=== PATIENT | male | born 1980 | race Caucasian/White ===

== ENCOUNTER 2018-01-18 17:24 | Observation (INO) ==
[~2018-01-18 17:24] MED LIST: Glycopyrrolate Inj 1 MG/5 ML Syringe IV.PUSH ONE; Lidocaine PF 1% Inj 5 ML Syringe INFILTRATN ONE; Neostigmine Inj 5 MG/5 ML Syringe IV.PUSH ONE
[2018-01-18] MEDS ORDERED: Acetaminophen 325 MG Tablet PO ONE (17:32)
--- NOTE | 2018-01-18 17:34 | ED ---
HPI General Chief Complaint: Abdominal Pain Stated Complaint: right side pain Time Seen by Provider: 01/18/18 17:32 Source: patient, family, RN notes reviewed, old records reviewed and interpreter and translator Mode of arrival: ambulatory Limitations: language barrier (tajik speaking) History of Present Illness HPI narrative: 37-year-old male presents with right lower quadrant pain since yesterday. He had one episode of vomiting yesterday. He did not realize he had a fever until he came here. He denies any other concurrent complaints. MD complaint: abdominal pain Onset (ago): day(s) Pain Consistency: constant Location: RLQ Severity: moderate Quality: stabbing Radiation: RLQ Migration to: no migration Relieving factors: nothing Exacerbating factors: movement Associated symptoms: vomiting (one yesterday) and fever Related Data Home Medications Medication Instructions Recorded Confirmed No Known Home Medications 01/18/18 01/18/18 Allergies Allergy/AdvReac Type Severity Reaction Status Date / Time No Known Allergies Allergy Unverified 01/18/18 17:28 Review of Systems ROS: all other systems reviewed are negative [facility] Medical History Medical History Patient denies medical problems (Acute) Surgical History Surgical History No history of previous surgery (Acute) Social History Social History Substance History: No History of Abuse Smoking Status: Never smoker How Often Do You Have a Drink Containing Alcohol: 4 or more times a week Recent Travel in [facility] within the Last 8 Weeks: No Recent Out of Country Travel within the Last 8 Weeks: No Exam Narrative Exam Narrative: GENERAL: 37 y/o male in no apparent distress SKIN: Focused skin assessment warm/dry. HEAD: Atraumatic. Normocephalic. EYES: Pupils equal and round. No scleral icterus. No injection or drainage. ENT: No nasal bleeding or discharge. Mucous membranes pink and moist. NECK: Trachea midline. CARDIOVASCULAR: Regular rate and rhythm. RESPIRATORY: No accessory muscle use. Clear to auscultation. Breath sounds equal bilaterally. GASTROINTESTINAL: Abdomen soft, ttp in rlq, nondistended. MUSCULOSKELETAL: No obvious deformities. No clubbing. No cyanosis. No edema. NEUROLOGICAL: Awake and alert. No obvious cranial nerve deficits. Motor grossly within normal limits. Normal speech. PSYCHIATRIC: Appropriate mood and affect; insight and judgment normal. Course Reevaluation(s) Reevaluation #1: Patient updated and notified of need for admission and surgery for acute appendicitis. Given Zosyn Consultations Consultation #1: Dr. Lagos through OR staff agrees to admission Initial Documented Vital Signs Temperature 101.3 F H 01/18/18 17:28 Pulse Rate 105 H 01/18/18 17:28 Respiratory Rate 19 01/18/18 17:28 Blood Pressure 133/72 01/18/18 17:28 Pulse Oximetry 98 01/18/18 17:28 Last Documented Vital Signs Temperature 101.3 F H 01/18/18 17:28 Pulse Rate 96 H 01/18/18 17:50 Respiratory Rate 20 01/18/18 17:50 Blood Pressure 132/73 01/18/18 17:50 Pulse Oximetry 98 01/18/18 17:50 Medical Decision Making MDM Narrative Medical decision making narrative: Will check blood work, urinalysis, CT scan abdominal pelvis and reevaluate Medical Screen Exam Complete: Yes Emergency Medical Condition: Yes Differential Diagnosis Differential Diagnosis: Appendicitis, stone, UTI Lab Data Lab results reviewed: Yes I reviewed the patient's lab results. Result diagrams: 01/18/18 17:45 01/18/18 17:45 Lab Results 01/18/18 01/18/18 01/18/18 Range/Units 17:45 17:45 17:45 WBC 15.4 H (4.0-11.0) th/mm3 RBC 4.42 L (4.50-5.90) mil/mm3 Hgb 13.4 (13.0-17.0) gm/dL Hct 39.0 (39.0-51.0) % MCV 88.2 (80.0-100.0) fL MCH 30.3 (27.0-34.0) pg MCHC 34.4 (32.0-36.0) % RDW 13.2 (11.6-17.2) % Plt Count 214 (150-450) th/mm3 MPV 8.7 (7.0-11.0) fL Neut % (Auto) 67.1 (16.0-70.0) % Lymph % (Auto) 20.6 (9.0-44.0) % [place] % (Auto) 6.8 (0.0-8.0) % Eos % (Auto) 5.3 H (0.0-4.0) % Baso % (Auto) 0.2 (0.0-2.0) % Neut # (Auto) 10.3 H (1.8-7.7) th/mm3 Lymph # (Auto) 3.2 (1.0-4.8) th/mm3 [place] # (Auto) 1.0 H (0.0-0.9) th/mm3 Eos # (Auto) 0.8 H (0.0-0.4) th/mm3 Baso # (Auto) 0.0 (0.0-0.2) th/mm3 WBC Differential . Differential Comment Auto diff final Sodium 137 (136-145) meq/L Potassium 3.8 (3.5-5.1) meq/L Chloride 99 (98-107) meq/L Carbon Dioxide 28.9 (21.0-32.0) meq/L Anion Gap 9 (5-15) meq/L BUN 20 H (7-18) mg/dL Creatinine 1.18 (0.60-1.30) mg/dL Estimated GFR 69 L (>89) mL/min Random Glucose 89 (74-106) mg/dL Lactic Acid 0.8 (0.4-2.0) mmol/L Calcium 8.8 (8.5-10.1) mg/dL Total Bilirubin 1.1 H (0.2-1.0) mg/dL AST 17 (15-37) U/L ALT 36 (12-78) U/L Alkaline Phosphatase 51 (45-117) U/L Total Protein 8.4 H (6.4-8.2) g/dL Albumin 4.0 (3.4-5.0) g/dL Lipase 106 (73-393) U/L Imaging Data Attestation: I personally reviewed and interpreted this imaging study as follows : Radiologist's impression: Abdomen/Pelvis CT 01/18/18 17:41 CONCLUSION: 1. Acute appendicitis without evidence of rupture. 2. Uncomplicated sigmoid diverticulosis. 3. No evidence of abscess or free fluid. Discharge Plan Discharge Disposition Patient Disposition: 30 Still Patient Discharge Condition Condition: Stable Discharge Details Diagnosis: Acute appendicitis, Sepsis Physicians Team ED Provider: Agueda Escalante Primary Care Provider: UNKNOWN, Attending Provider: Ananda Lagos Status ED Status: Admitted Patient
[2018-01-18] MEDS ORDERED: Sod Chloride 0.9% Inj 1,000 ML IV.SIG SCH (17:45)
--- NOTE | 2018-01-18 18:13 | CT ---
EXAM DATE: 01/18/2018 5:58 PM EDT AGE/SEX: 37 years / Male INDICATIONS: Right sided abdomen pain for two days. CLINICAL DATA: This is the patient's initial encounter. Patient reports that signs and symptoms have been present for 2 days and indicates a pain score of 7/10. MEDICAL/SURGICAL HISTORY: None. None. RADIATION DOSE: 32.28 CTDI (mGy) ; Patient body habitus COMPARISON: No prior exams available for comparison. TECHNIQUE: Multiple contiguous axial images were obtained through the abdomen. Images were obtained using multiple row detector helical technique. Using automated exposure control and adjustment of the mA and/or kV according to patient size, radiation dose was kept as low as reasonably achievable to o btain optimal diagnostic quality images. DICOM format image data is available electronically for rev iew and comparison. FINDINGS: Lower Lungs: The visualized lower lungs are clear. Liver: The liver has a homogeneous density without space-occupying lesion. There is no dilation of th e biliary tree. Calcified granuloma is identified centrally in the right hepatic lobe. Spleen: Homogeneous density without enlargement. Pancreas: Unremarkable without mass or calcification. Kidneys: Normal in size and shape. No evidence of mass or hydronephrosis. Adrenal Glands: Unremarkable. Aorta: The aorta and proximal iliac vessels are grossly unremarkable without aneurysmal dilation. Bowel/Mesentery: There is generalized thickening of the appendix with periappendiceal stranding is no evidence of free air or abnormal periappendiceal fluid collections. A few scattered diverticula are seen throughout the sigmoid colon. The bowel loops are otherwise grossly unremarkable. The cecum and sigmoid colon have a normal configuration. Abdominal Wall: Intact. Retroperitoneum: No evidence of adenopathy in the retrocrural, para-aortic, or deep pelvic regions. Bladder: Contours are smooth. Reproductive Organs: No abnormal masses or calcifications seen. Inguinal: The inguinal region is unremarkable without evidence of adenopathy. Bony Structures: Unremarkable. CONCLUSION: 1. Acute appendicitis without evidence of rupture. 2. Uncomplicated sigmoid diverticulosis. 3. No evidence of abscess or free fluid. Electronically signed by: Candido Miner MD 01/18/2018 6:11 PM EDT
[2018-01-18 18:16] LABS: Baso % (Auto) 0.2 % (0.0-2.0); Eos # (Auto) 0.8 th/mm3 (0.0-0.4); Eos % (Auto) 5.3 % (0.0-4.0); Hemoglobin 13.4 gm/dL (13.0-17.0); Lymph # (Auto) 3.2 th/mm3 (1.0-4.8); Lymph % (Auto) 20.6 % (9.0-44.0); Mean Corpuscular HGB Conc 34.4 % (32.0-36.0); Mean Corpuscular Hemoglobin 30.3 pg (27.0-34.0); Mean Corpuscular Volume 88.2 fL (80.0-100.0); Mean Platelet Volume 8.7 fL (7.0-11.0); Mono % (Auto) 6.8 % (0.0-8.0); Neut # (Auto) 10.3 th/mm3 (1.8-7.7); Neut % (Auto) 67.1 % (16.0-70.0); Platelet Count 214 th/mm3 (150-450); Red Blood Count 4.42 mil/mm3 (4.50-5.90); Red Cell Distribution Width 13.2 % (11.6-17.2); White Blood Count 15.4 th/mm3 (4.0-11.0)
[2018-01-18] MEDS ORDERED: Piperacil/Tazo 3.375 GM Premix 50 ML IV.SIG ONE (18:18)
[2018-01-18 18:45] LABS: Anion Gap 9 meq/L (5-15); Aspartate Aminotransferase 17 U/L (15-37); Blood Urea Nitrogen 20 mg/dL (7-18); Calcium 8.8 mg/dL (8.5-10.1); Carbon Dioxide 28.9 meq/L (21.0-32.0); Chloride 99 meq/L (98-107); Glomerular Filtration Rate 69 mL/min (>89); Glucose,Random 89 mg/dL (74-106); Lipase 106 U/L (73-393); Potassium 3.8 meq/L (3.5-5.1); Sodium 137 meq/L (136-145)
[2018-01-18 18:49] LABS: Alanine Aminotransferase 36 U/L (12-78); Alkaline Phosphatase 51 U/L (45-117); Total Protein 8.4 g/dL (6.4-8.2)
--- NOTE | 2018-01-18 20:45 | P.HPGS ---
History of Present Illness Service: General Surgery Primary Care Physician: UNKNOWN Chief Complaint: Abdominal pain History of Present Illness: 37 yo M developed RLQ abdominal pain yesterday with one episode of emesis. The pain persisted today and he presented to the ED where he was noted to have a Tm101.3. He denies medical or surgical history. He is primarily Macedonian speaker and family member is translating for him at his request. WBC is [address] a/p revealing acute appendicitis. - Diagnosis (1) Acute appendicitis Inpatient Certification: I certify that the inpatient services were ordered in accordance with Medicare regulations governing the order. This includes certification that hospital inpatient services are reasonable and necessary and in the case of services not specified as inpatient-only under 42 CFR 419.22(n), that they are appropriately provided as inpatient services in accordance to with the 2-midnight benchmark under 43 CFR 412.3(e) Review of Systems All other systems reviewed negative except as stated in HPI PMFSH - History History Provided By: Patient - Medical History Medical History: Medical History (Last Updated 01/18/18 @ 17:58 by Unique Hameed RN) Patient denies medical problems - Surgical History Surgical History: Surgical History (Last Updated 01/18/18 @ 17:58 by Unique Hameed RN) No history of previous surgery - Tobacco History Smoking Status: Never smoker - Alcohol History How Often Do You Have a Drink Containing Alcohol: 4 or more times a week - Substance Use History Substance History: No History of Abuse - Travel History Recent Travel in the [place] Within the Last 8 Weeks: No Recent Travel Out of the Country Within the Last 8 Weeks: No - Immunization History Tetanus Immunization: Unsure Medications and Allergies Active Medications: Active Medications Sodium Chloride (Ns Inj) 1,000 mls @ 0 mls/hr IV.SIG BOLUS LOUISA Last Admin: 01/18/18 17:45 Dose: 999 mls/hr Sodium Chloride (Ns Flush) 2 ml IV.FLUSH PRN PRN PRN Reason: FLUSH AFTER USING IV ACCESS Allergies Allergy/AdvReac Type Severity Reaction Status Date / Time No Known Allergies Allergy Unverified 01/18/18 17:28 Home Medications Medication Instructions Recorded Confirmed Type No Known Home Medications 01/18/18 01/18/18 History Exam Vital signs: Vital Signs 01/18/18 17:28 01/18/18 17:50 01/18/18 20:27 Temperature 101.3 F H Pulse Rate 105 H 96 H 79 Respiratory Rate 19 20 16 Blood Pressure 133/72 132/73 128/67 Pulse Oximetry 98 98 96 Intake & Output 01/18/18 01/18/18 01/19/18 06:59 18:59 06:59 Weight 220 kg Narrative: GENERAL: Awake and alert. No acute distress. Cooperative. HEAD: Normocephalic. Atraumatic. EYES: Pupils equal round and reactive to light bilaterally. No scleral icterus. ENT: Moist oral mucosa. NECK: Trachea midline. CHEST: Nonlabored breathing. No respiratory distress. CARDIOVASCULAR: Regular rate and rhythm. ABDOMEN: Soft, nondistended. Severe ttp RLQ otherwise ntd. EXTREMITIES: No cyanosis or edema. SKIN: Warm, dry, nonjaundiced. Results - Results CT scan - abdomen: report reviewed, image reviewed CT scan - pelvis: report reviewed, image reviewed Caprini VTE Risk Assessment Caprini VTE Risk Assessment: No/Low Risk (score <= 1) Caprini Risk Assessment Model: Point Value = 1 Point Value = 2 Point Value = 3 Point Value = 5 Age 41-60 Minor surgery BMI > 25 kg/m2 Swollen legs Varicose veins or History of unexplained or recurrent spontaneous Oral contraceptives or hormone replacement Sepsis (< 1 month) Serious lung disease, including pneumonia (< 1 month) Abnormal pulmonary function Acute myocardial infarction Congestive heart failure (< 1 month) History of inflammatory bowel disease Medical patient at bed rest Age 61-74 Arthroscopic surgery Major open surgery (> 45 min) Laparoscopic surgery (> 45 min) Malignancy Confined to bed (> 72 hours) Immobilizing plaster cast Central venous access Age >= 75 History of VTE Family history of VTE Factor V Leiden Prothrombin [id number] Lupus anticoagulant Anticardiolipin antibodies Elevated serum homocysteine Heparin-induced thrombocytopenia Other congenital or acquired thrombophilia Stroke (< 1 month) Elective arthroplasty Hip, pelvis, or leg fracture Acute spinal cord injury (< 1 month) Prophylaxis Regimen: Total Risk Factor Score Risk Level Prophylaxis Regimen 0-1 Low Early ambulation 2 Moderate Order ONE of the following: *Sequential Compression Device (SCD) *Heparin 5000 units SQ BID 3-4 Higher Order ONE of the following medications: *Heparin 5000 units SQ TID *Enoxaparin/Lovenox 40 mg SQ daily (WT < 150 kg, CrCl > 30 mL/min) *Enoxaparin/Lovenox 30 mg SQ daily (WT < 150 kg, CrCl > 10-29 mL/min) *Enoxaparin/Lovenox 30 mg SQ BID (WT < 150 kg, CrCl > 30 mL/min) AND/OR *Sequential Compression Device (SCD) 5 or more Highest Order ONE of the following medications: *Heparin 5000 units SQ TID (Preferred with Epidurals) *Enoxaparin/Lovenox 40 mg SQ daily (WT < 150 kg, CrCl > 30 mL/min) *Enoxaparin/Lovenox 30 mg SQ daily (WT < 150 kg, CrCl > 10-29 mL/min) *Enoxaparin/Lovenox 30 mg SQ BID (WT < 150 kg, CrCl > 30 mL/min) AND *Sequential Compression Device (SCD) Assessment and Plan - Assessment (1) Acute appendicitis Code(s): K35.80 - Unspecified acute appendicitis Status: Acute - Plan I recommend to proceed with laparoscopic appendectomy possible open. Discussed this in detail with the patient and he understands and desires to proceed. Zosyn given in ED.
[2018-01-18 21:37] LABS: Bilirubin,Urine Negative (Negative); Clarity,Urine Clear (Clear); Color,Urine Yellow (Yellw/Straw); Glucose,Urine (UA) Negative (Negative); Leukocyte Esterase,Urine Negative (Negative); Mucus,Urine Few /lpf (Occasional); Nitrite,Urine Negative (Negative); Specific Gravity,Urine 1.024 (1.002-1.035); Squamous Epithelial Cell,Urine <1 /hpf (0-5)
[2018-01-18] MEDS ORDERED: Morphine Inj 4 MG/ML Vial IV.PUSH PRN (23:32)
[2018-01-18] MEDS ORDERED: Naloxone Inj 0.4 MG/ML Vial IV.PUSH PRN (23:32)
[2018-01-18] MEDS ORDERED: Post-op Orders (for Pharmacy) OTHER ONE (23:32)
--- NOTE | 2018-01-18 23:36 | P.OP ---
- Preoperative Diagnosis (1) Acute appendicitis - Postoperative Diagnosis (1) Acute appendicitis Date of procedure: 01/18/18 Procedure: Laparoscopic appendectomy Surgeon: Ananda Lagos MD Eyeglass Maker: Mayra Estimated blood loss (mL): 10 Pathology: other (Appendix) Operation and Findings: EBL: 5 cc Complications: None apparent Operative findings: Dilated inflamed appendix. Procedure in detail: The patient was taken to the operating room placed in the supine position with left arm tucked. General endotracheal anesthesia was induced and the abdomen was prepped and draped in usual sterile fashion. Surgical timeout was performed to verify correct patient procedure and site. Perioperative antibiotics were administered as necessary. Local anesthetic was injected in the skin and subcutaneous tissue inferior to the umbilicus and a 5 mm incision made. Using the 5 mm Optiview trocar with laparoscope the abdomen was directly entered. The abdomen was then insufflated to 15 mmHg with CO2 gas which the patient tolerated well. The patient was then placed in Trendelenburg position and turned slightly to the left. A 12 mm port was placed under laparoscopic visualization in the superior umbilicus and another 5 mm port in the suprapubic area. Attention was turned to the right lower quadrant. The appendix is dilated and inflamed with small bowel adherent to it. The small bowel was gently removed from the appendix. The mesoappendix was taken down with the Harmonic scalpel. Two #1 PDS Endoloops were placed at the base the appendix and the appendix transected with Harmonic scalpel. It was then removed using an Endo Catch bag. The appendiceal stump was intact with no leakage. There was no purulent fluid identified in the abdomen. The abdomen was allowed to desufflate. The fascia at the 12 mm port site was closed with a [id number] 0 Vicryl suture. Skin closed with subcuticular Monocryl as well as Dermabond. The patient tolerated the procedure well was extubated and taken to PACU in stable condition.
[2018-01-18] MEDS ORDERED: Sod Chloride 0.9% Inj 1,000 ML IV.CONT SCH (23:45)
[2018-01-18] MEDS ORDERED: fentaNYL Citrate Inj 100 MCG/2 ML Ampul ONE (23:54)
[2018-01-19] MEDS: Ketorolac Inj 30 MG/ML (IVP) Vial IV.PUSH SCH ×2 (00:42→05:14)
[2018-01-19 05:24] VITALS: PULSE 68
[2018-01-19 08:58] VITALS: BP 120/60; RESP 16; TEMP 97.8; O2SAT 96
--- NOTE | 2018-01-19 10:24 | P.PN ---
Subjective Interval history: no flatus pain better Physical Exam Vital signs: Vital Signs 01/18/18 17:28 01/18/18 17:50 01/18/18 20:27 Temperature 101.3 F H Pulse Rate 105 H 96 H 79 Respiratory Rate 19 20 16 Blood Pressure 133/72 132/73 128/67 Pulse Oximetry 98 98 96 01/18/18 23:45 01/19/18 00:00 01/19/18 00:15 Temperature 98.5 F Pulse Rate 97 H 69 70 Respiratory Rate 16 16 15 Blood Pressure 149/76 H 146/79 H 145/79 H Pulse Oximetry 91 L 95 97 01/19/18 00:29 01/19/18 01:49 01/19/18 04:00 Temperature 98.7 F 97.8 F 98.0 F Pulse Rate 100 H 83 68 Respiratory Rate 16 18 Blood Pressure 142/77 H 108/61 107/58 L Pulse Oximetry 100 97 99 01/19/18 08:00 Temperature 97.8 F Pulse Rate 68 Respiratory Rate 16 Blood Pressure 120/60 Pulse Oximetry 96 Intake & Output 01/18/18 01/19/18 01/19/18 18:59 06:59 18:59 Intake Total 2050 / 0 Output Total 305 / 305 Balance 1745 / 1745 Weight 220 kg 137.5 kg Intake: IV 1050 / 1050 Zosyn 3.375 GM Premix 50 ML @ 50 / 50 100 mls/hr IV.SIG ONCE ONE Rx#: [id number] NS Inj 1,000 ML @ Wide Open IV. 1000 / 1000 SIG BOLUS LOUISA Rx#:[id number] Anesthesia Amount 1000 / 1000 Output: Urine 300 / 300 Estimated Blood Loss 5 / 5 Other: # Voids 1 Weight On Admission 220 kg - Constitutional no acute distress - Routine Abdominal Exam Present: soft Comments: mild distension Results - Labs CBC & Chem 7: 01/18/18 17:45 01/18/18 17:45 Laboratory Results - last 24 hr 01/18/18 01/18/18 01/18/18 17:45 17:45 17:45 WBC 15.4 H RBC 4.42 L Hgb 13.4 Hct 39.0 MCV 88.2 MCH 30.3 MCHC 34.4 RDW 13.2 Plt Count 214 MPV 8.7 Neut % (Auto) 67.1 Lymph % (Auto) 20.6 [facility] % (Auto) 6.8 Eos % (Auto) 5.3 H Baso % (Auto) 0.2 Neut # (Auto) 10.3 H Lymph # (Auto) 3.2 [facility] # (Auto) 1.0 H Eos # (Auto) 0.8 H Baso # (Auto) 0.0 WBC Differential . Differential Comment Auto diff final Sodium 137 Potassium 3.8 Chloride 99 Carbon Dioxide 28.9 Anion Gap 9 BUN 20 H Creatinine 1.18 Estimated GFR 69 L Random Glucose 89 Lactic Acid 0.8 Calcium 8.8 Total Bilirubin 1.1 H AST 17 ALT 36 Alkaline Phosphatase 51 Total Protein 8.4 H Albumin 4.0 Lipase 106 Urine Color Urine Clarity Urine pH Ur Specific [place] Urine Protein Urine Glucose (UA) Urine Ketones Urine Occult Blood Urine Nitrate Urine Bilirubin Urine Urobilinogen Ur Leukocyte Esterase Urine RBC Urine WBC Ur Squamous Epith Cells Urine Mucus Micro UA Comment Ur Microscopic Review Urine Culture Comments 01/18/18 20:28 WBC RBC Hgb Hct MCV MCH MCHC RDW Plt Count MPV Neut % (Auto) Lymph % (Auto) [facility] % (Auto) Eos % (Auto) Baso % (Auto) Neut # (Auto) Lymph # (Auto) [facility] # (Auto) Eos # (Auto) Baso # (Auto) WBC Differential Differential Comment Sodium Potassium Chloride Carbon Dioxide Anion Gap BUN Creatinine Estimated GFR Random Glucose Lactic Acid Calcium Total Bilirubin AST ALT Alkaline Phosphatase Total Protein Albumin Lipase Urine Color Yellow Urine Clarity Clear Urine pH 6.0 Ur Specific [place] 1.024 Urine Protein Negative Urine Glucose (UA) Negative Urine Ketones Negative Urine Occult Blood Moderate H Urine Nitrate Negative Urine Bilirubin Negative Urine Urobilinogen 2.0 H Ur Leukocyte Esterase Negative Urine RBC 18 H Urine WBC 2 Ur Squamous Epith Cells <1 Urine Mucus Few H Micro UA Comment Culture not ind Ur Microscopic Review Not Reportable Urine Culture Comments Culture not ind - Imaging Impressions Abdomen/Pelvis CT 01/18/18 17:41 CONCLUSION: 1. Acute appendicitis without evidence of rupture. 2. Uncomplicated sigmoid diverticulosis. 3. No evidence of abscess or free fluid. Assessment and Plan - Assessment (1) Acute appendicitis Code(s): K35.80 - Unspecified acute appendicitis Status: Acute - Plan advance diet if gay d/c home no stenuous activities f/u office 2 wks - Attending Attestation The exam, history, and the medical decision-making described in the above note were completed with the assistance of the mid-level provider. I reviewed and agree with the findings presented. I attest that I had a [id number] encounter with the patient on the same day, and personally performed and documented my assessment and findings in the medical record.
== END 2018-01-19 11:31 | disposition home or self-care (01) ==
LOC: NEPC 17:24 → INTOOBSV 18:24 → NEDA 18:24 → N07 01-19 00:33
PROVIDERS: ADMIT Surgery; ATTEND Surgery
PROC: LAPAPPY (ICD-10-PCS; 2018-01-18 22:41)
DX: K35.89 Other acute appendicitis